=== PATIENT | female | born 1995 | race Caucasian/White ===

== ENCOUNTER 2016-07-14 22:01 | Emergency (ER) | payer OTHER ==
[2016-07-14 21:33] LABS: URINE SOURCE CLEAN CATCH
[2016-07-14 21:44] LABS: CULTURE INDICATED? YES; URINE APPEARANCE CLOUDY; URINE BACTERIA AUWI 1+ (NEGATIVE); URINE BILIRUBIN NEG (NEG); URINE BLOOD TRACE (NEG); URINE COLOR YELLOW; URINE GLUCOSE NEG (NEG); URINE KETONE NEG (NEG); URINE LEUKOCYTE ESTERASE TRACE (NEG); URINE NITRATE NEG (NEG); URINE PH 7.5 (5-8); URINE PROTEIN NEG (NEG); URINE SPECIFIC GRAVITY 1.024 (1.003-1.035); URINE SQUAMOUS EPITHELIAL CELL MOD /[HPF]; URINE UROBILINOGEN 0.2 MG/DL (NEG)
[2016-07-14 21:49] LABS: INFLUENZA A NEG (NEG); INFLUENZA B NEG (NEG)
[~2016-07-14 22:01] MED LIST: BACTRIM DS TABL1 TA1 PO; CHOLESTEROL MED; DULOXETINE HCL60 MG PO; KEFLEX500 MG PO; OMEPRAZOLE20 M1 PO; ROBAXIN500 MG PO; SEROQUEL PO; ST. JOSEPH ASPI81 M2 PO; TRINESSA TABLE1 EACH PO; ZANTAC150 MG PO
[2016-11-17] MEDS ORDERED: DULOXETINE HCL60 MG PO (15:02)
[2016-11-17] MEDS ORDERED: OMEPRAZOLE40 M1 PO (15:02)
[2016-11-17] MEDS ORDERED: SEROQUEL PO (15:03)
[2016-11-17] MEDS ORDERED: ZOCOR PO (15:03)
[2016-11-17] MEDS ORDERED: BIRTH CONTROL PILL PO (15:04)
[2016-11-17] MEDS ORDERED: INHALER INH (15:08)
== END 2016-07-14 23:00 | disposition home or self-care (01) ==
LOC: CFTX 22:01
PROVIDERS: Nurse Practitioner Family
DX: K52.9 Noninfective gastroenteritis and colitis, unspecified (principal); K21.9 Gastro-esophageal reflux disease without esophagitis
CPT/HCPCS: 81003; 84703; 87086; 87804; 99283

== ENCOUNTER → 2016-09-13 | Outpatient (CLI) | payer OTHER ==
[~2016-09-13] MED LIST changes: +BIRTH CONTROL PILL PO; +INHALER INH; +OMEPRAZOLE40 M1 PO; +ZOCOR PO
--- NOTE | ~2016-09-13 | US24 ---
[facility] A Service of [facility] & [facility] RADIOLOGY TEXT RESULTS PATIENT: PORSHA ARANGO LOCATION: [facility] : [birth year] UNIT #: [id number] AGE: [address]: Paige Chun MD SEX: F ORDER DR: [id number] [facility] [address] [place], [place] [address] [id number] O MR#: [id number] #: [id number] NAME: PORSHA ARANGO : 1995 SEX: F STUDY DATE/TIME: 09/13/2016 10:12 UNIT: [facility] ROOM: STUDY DESCRIPTION: US Breast Unilateral Attending Physician: Paige Chun M.D. Referring Physician: Paige Chun M.D. Ordering Physician: Paige Chun M.D. Primary Care Physician: Paige Chun M.D. MEDICAL IMAGING REPORT This report is preliminary unless electronic signature is present EXAM Targeted ultrasound of the left breast 09/13/2016 INDICATIONS The patient complains of tenderness in the left breast in the upper outer quadrant and in the lower inner quadrant for the past 3 months. She complains of a scaly, patchy area of redness at both the 3 o'clock and 8 o'clock positions. She denies a palpable lump or nodule in either breast and denies any right-sided breast symptoms. Reported history of breast cancer in the patient's sister in her thirties. TECHNIQUE Targeted ultrasound of the left breast was performed in the areas of patient pain symptoms and concern. We have no comparison studies. FINDINGS LEFT BREAST: The patient was initially scanned independently by the technologist and then rescanned in my presence. Limited physical exam (with patient consent) was performed and demonstrates an oval shaped area of erythema in the 3 o'clock position left breast with an area of central lucency and faint scaling. There is no corresponding area at the 8 o'clock position. There is no palpable nodule or mass at either location on my exam. Imaging of the left breast was performed at both locations. There is no cystic or solid nodule or persistent area of abnormal shadowing. The breast parenchyma appears unremarkable at both clock positions. Clinical considerations should determine additional imaging at this time. The patient may benefit from further evaluation by dermatologic referral. The patient was counseled that if her symptoms worsened or a new palpable abnormality developed, she should return for additional imaging at that STS. [facility] A Service of [facility] RADIOLOGY TEXT RESULTS PATIENT: PORSHA ARANGO LOCATION: [facility] : [birth year] UNIT #: [id number] AGE: [address]: Paige Chun MD SEX: F ORDER DR: edin. She voiced understanding and agreement. A diagnostic mammogram was not thought to offer additional diagnostic benefit and therefore was not performed. The patient complained of no symptoms or abnormalities on the right and therefore ultrasound imaging of the right breast was not performed. IMPRESSION Ultrasound evaluation of the left breast demonstrates no suspicious finding. There is an erythematous region of scaling in the 3 o'clock position left breast on the patient's skin and the patient may benefit from further assessment by dermatologic referral. Clinical considerations to determine additional imaging at this point. See discussion above. BIRADS: 1 Negative Dictated by... Kaushal Steven M.D. THIS IS AN ELECTRONICALLY VERIFIED REPORT Kaushal Steven M.D. at 09/15/2016 5:39 PM ADOLFO/rick TD: 09/13/2016 11:05 JOB #: [id number] MEDICAL IMAGING REPORT Page 1 of 1 COPY
== END | disposition home or self-care (01) ==
LOC: CWCC 09:22
DX: N64.4 Mastodynia (principal); R23.4 Changes in skin texture; L53.8 Other specified erythematous conditions
CPT/HCPCS: 76641

== ENCOUNTER → 2016-10-13 | Outpatient (CLI) | payer OTHER ==
--- NOTE | ~2016-10-13 | CR7 ---
[facility] A Service of [facility] & [facility] RADIOLOGY TEXT RESULTS PATIENT: PORSHA ARANGO LOCATION: [facility] : [birth year] UNIT #: [id number] AGE: [address]: Paige Chun MD SEX: F ORDER DR: [id number] [facility] [address] [place], [place] [address] [id number] O MR#: [id number] Acc #: [id number] NAME: PORSHA ARANGO : 1995 SEX: F STUDY DATE/TIME: 10/13/2016 15:19 UNIT: [facility] ROOM: STUDY DESCRIPTION: CR Abdomen Single AP View Attending Physician: Paige Chun M.D. Referring Physician: Paige Chun M.D. Ordering Physician: Paige Chun M.D. Primary Care Physician: Paige Chun M.D. MEDICAL IMAGING REPORT This report is preliminary unless electronic signature is present EXAM KUB. HISTORY SUPPLIED Mid abdominal pain, nausea, diarrhea, bloody stools, distension for 2 weeks. FINDINGS KUB is submitted. Gas pattern is normal. No evidence of organomegaly, mass or free air. CONCLUSION Normal. Dictated by... Robinson Devine M.D. THIS IS AN ELECTRONICALLY VERIFIED REPORT Robinson Devine M.D. at 10/14/2016 6:06 PM Ana Rosa TD: 10/13/2016 20:24 JOB #: [id number] MEDICAL IMAGING REPORT Page 1 of 1 COPY
== END | disposition home or self-care (01) ==
LOC: CRAD 15:05
DX: R10.9 Unspecified abdominal pain (principal); R11.0 Nausea; R19.7 Diarrhea, unspecified
CPT/HCPCS: 74000